=== PATIENT | female | born 1990 | race Two or more races ===

== ENCOUNTER 2017-03-22 12:14 | Emergency (ER) | payer MEDICAID ==
[~2017-03-22] VITALS: Ht 160 cm; Wt 60.8 kg
[~2017-03-22 12:14] MED LIST: IBUP-784 PO
--- NOTE | 2017-03-22 12:30 | NUR ---
URINE SENT TO LAB.
--- NOTE | 2017-03-22 12:35 | NUR ---
BIB FAMILY C/O MULTIPLE COMPLAINS: VAGINAL BLEEDING, DIZZINESS, FLU SYMPTOMS, ORAL PAIN WITH SORES, JAW PAIN, COUGH. NAD NOTED, VSS, RESP EVEN AND UNLABORED. WAITING FOR MD LYNN.
[2017-03-22 13:01] LABS: BASOPHILS # (AUTO) 0.2 /CMM (0.0-0.2); BASOPHILS % (AUTO) 2.2 % (0.0-2.0); EOSINOPHILS # (AUTO) 0.4 /CMM (0.0-0.7); EOSINOPHILS % (AUTO) 5.3 % (0.0-6.0); HEMATOCRIT 41 % (33-45); HEMOGLOBIN 13.6 g/dL (11.5-14.8); LYMPHOCYTES # (AUTO) 0.5 /CMM (0.8-4.8); LYMPHOCYTES % (AUTO) 6.5 % (20.0-44.0); MEAN CORPUSCULAR HEMOGLOBIN 31 PG (26.0-33.0); MEAN CORPUSCULAR HGB CONC 34 g/dl (31.0-36.0); MEAN CORPUSCULAR VOLUME 92 fL (82-100); MONOCYTES # (AUTO) 0.8 /CMM (0.1-1.30); MONOCYTES % (AUTO) 10.2 % (2.0-12.0); NEUTROPHILS # (AUTO) 5.7 /CMM (1.8-8.9); NEUTROPHILS % (AUTO) 75.8 % (43.0-81.0); PLATELET COUNT (AUTO) 241 /CMM (150-450); RDW COEFFICIENT OF VARIATION 12.1 (11.5-15.0); RED BLOOD CELL COUNT(AUTO) 4.41 MIL/uL (4.0-5.2); WHITE BLOOD COUNT (AUTO) 7.6 K/uL (4.3-11.0)
[2017-03-22 13:04] LABS: APPEARANCE,URINE Clear (CLEAR); BILIRUBIN,URINE Negative (NEGATIVE); BLOOD, URINE Negative Ery/uL (NEGATIVE); COLOR,URINE Yellow (YELLOW); KETONES,URINE Trace (NEGATIVE); LEUKOCYTE ESTERASE ,URINE Negative (NEGATIVE); NITRITE, URINE Negative (NEGATIVE); PROTEIN,URINE Negative (NEGATIVE); UGLUCOSE Negative (NEGATIVE); UROBILINOGEN,URINE 0.2 EU/dL (0.2)
[2017-03-22 13:15] LABS: CALCIUM, SERUM 9.1 mg/dL (8.5-10.1); CREATININE 0.5 mg/dL (0.6-1.3); POTASSIUM 3.5 mmol/L (3.5-5.1)
[2017-03-22 13:23] LABS: INR 0.94 (0.87-1.13); PROTHROMBIN TIME 9.8 SECS (9.5-12.7)
[2017-03-22] MEDS ORDERED: ACETAMINOPHEN ES 500 MG TABLET ONE (13:57)
[2017-03-22] MEDS ORDERED: IBUPROFEN 400 MG TABLET ONE (13:57)
--- NOTE | 2017-03-22 13:58 | NUR ---
PT C/O HEADACHE, RECEIVED VERBAL ORDER FROM [facility] TO GIVE, TYLENOL 1GM AND MOTRIN 400MG.
[2017-03-22] MEDS ORDERED: ACETAMINOPHEN ES 500 MG TABLET PO ONE (14:00)
[2017-03-22] MEDS ORDERED: IBUPROFEN 400 MG TABLET PO ONE (14:00)
--- NOTE | 2017-03-22 14:26 | NUR ---
CALLED , TRANSFERRED CALL TO YVAN HADDAD NP.
[2017-03-22 15:13] VITALS: BP 118/75
--- NOTE | 2017-03-22 15:17 | NUR ---
Patient discharged to home in stable condition. Written and verbal after care instructions given. Patient verbalizes understanding of instruction.
== END 2017-03-22 15:15 | disposition home or self-care (01) ==
LOC: ER 12:17
DX: O03.4 Incomplete spontaneous abortion without complication (principal); R05 Cough; R09.81 Nasal congestion; R50.9 Fever, unspecified
CPT/HCPCS: 36415; 76856; 80048; 81001; 84702; 85025; 85730; 99285; A4606; Z7610; 81000-TC

== ENCOUNTER 2017-11-12 19:24 | Emergency (ER) | payer MEDICAID, OTHER ==
[~2017-11-12] VITALS: Ht 160 cm; Wt 59.9 kg
[2017-11-12] MEDS ORDERED: IV NS 0.9% 500 ML BAG IV ONE (20:00)
[2017-11-12] MEDS ORDERED: METOCLOPRAMIDE HCL 10 MG/2 ML VIAL IV ONE (20:00)
[2017-11-12] MEDS ORDERED: diphenhydrAMINE HCL 50 MG/ML VIAL IV ONE (20:00)
[2017-11-12] MEDS ORDERED: KETOROLAC TROMETHAMINE INJ 30 MG/ML VIAL IV ONE (20:00)
[2017-11-12] MEDS ORDERED: diphenhydrAMINE HCL 50 MG/ML VIAL ONE (20:05)
[2017-11-12] MEDS ORDERED: METOCLOPRAMIDE HCL 10 MG/2 ML VIAL ONE (20:05)
[2017-11-12] MEDS ORDERED: KETOROLAC TROMETHAMINE INJ 30 MG/ML VIAL ONE (20:05)
--- NOTE | 2017-11-12 20:14 | NUR ---
BIB MOTHER; "HEADACHE SINCE 2P". PT SEEN & EVAL'D BY MADELYN SONG. PT STABLE, NAD NOTED @ THIS TIME.
--- NOTE | 2017-11-12 21:02 | NUR ---
Patient discharged to home in stable condition. Written and verbal after care instructions given. Patient verbalizes understanding of instruction. DC'D SALINE LOCK, CATHETER INTACT, APPLIED DRESSING & ACTIVE BLEEDING NOTED UPON LEAVING ED.
[2017-11-12 21:04] VITALS: BP 118/74
== END 2017-11-12 21:05 | disposition home or self-care (01) ==
LOC: ER 19:29
DX: G43.909 Migraine, unspecified, not intractable, without status migrainosus (principal)
CPT/HCPCS: 96374; 96375; 99284; A4606; J1200; J1885; J2765; J7040; Z7610; J7030

== ENCOUNTER 2018-04-10 00:30 | Emergency (ER) | payer OTHER ==
--- NOTE | 2018-04-10 02:19 | NUR ---
CALLED PT'S NAME THREE TIMES, NO RESPONSE IN THE WAITING ROOM. PT LEFT BEFORE TRIAGE
== END 2018-04-10 02:20 | disposition left against medical advice (07) ==
LOC: ER 00:32
DX: Z53.21 Procedure and treatment not carried out due to patient leaving prior to being seen by health care provider (principal)

== ENCOUNTER 2019-04-12 02:25 | Emergency (ER) | payer MEDICAID, OTHER ==
[~2019-04-12] VITALS: Ht 160 cm; Wt 63.5 kg
--- NOTE | 2019-04-12 05:00 | NUR ---
Patient discharged to home in stable condition. Written and verbal after care instructions given. Patient verbalizes understanding of instruction.
[2019-04-12 08:36] VITALS: BP 102/65
== END 2019-04-12 05:00 | disposition home or self-care (01) ==
LOC: ER 02:27
DX: J06.9 Acute upper respiratory infection, unspecified (principal)
CPT/HCPCS: 71045-TC